=== PATIENT | female | born 1975 | race Two or more races ===

== ENCOUNTER 2021-02-07 23:22 | Inpatient (IN) | payer OTHER ==
[~2021-02-07] VITALS: Ht 165.1 cm; Wt 82.7 kg
[2021-02-07] MEDS ORDERED: ACETAMINOPHEN 325 MG TAB PO ONE (23:45)
[2021-02-08 00:42] LABS: Basophils # (auto) 0 10 ^3/uL (0-0.2); Basophils % (auto) 0.2 % (0.0-2.0); Eosinophils # (auto) 0.1 10 ^3/uL (0-0.8); Eosinophils % (auto) 0.6 % (0.0-7.0); Hematocrit 35.8 % (36.0-46.0); Hemoglobin 11.8 g/dL (12.2-16.2); Lymphocytes # (auto) 1.3 10 ^3/uL (0.4-5.4); Lymphocytes % (auto) 7.8 % (10.0-50.0); Mean Corpuscular Hemoglobin 28.6 pg (28.0-32.0); Mean Corpuscular Volume 86.6 fL (80.0-100.0); Monocytes # (auto) 0.6 10 ^3/uL (0-1.3); Monocytes % (auto) 3.8 % (0.0-12.0); Neutrophils # (auto) 14.5 10 ^3/uL (1.6-8.6); Neutrophils % (auto) 87.6 % (37.0-80.0); Red Blood Cells 4.13 10^6/uL (4.0-5.20); Red Cell Distribution Width 15.3 % (11.8-14.3); White Blood Cell 16.6 10^3/uL (4.4-10.8)
[2021-02-08 00:44] LABS: Albumin 2.9 g/dL (3.4-5.0); Calcium 8.3 mg/dL (8.5-10.1); Potassium 4.1 mmol/L (3.5-5.1)
[2021-02-08 00:58] LABS: Bilirubin, Total 0.4 mg/dL (0.2-1.0)
[2021-02-08] MEDS ORDERED: ONDANSETRON HCL 4 MG/2 ML VIAL IV ONE (06:45)
[2021-02-08] MEDS ORDERED: HYDROcodone-ACET 10/325MG TAB PO ONE (06:45)
[2021-02-08] MEDS ORDERED: cefTRIAXone 1GM/50ML D5W 50 ML IV ONE (06:55)
[2021-02-08] MEDS ORDERED: IOHEXOL 350 MG/ML 100ML IJ ONE (06:58)
[2021-02-08] MEDS ORDERED: SODIUM CHLORIDE 0.9% 1,000 ML IV ONE ×3 (07:00→14:15)
[2021-02-08] MEDS ORDERED: cefTRIAXone SOD 1,000 MG VL IM SCH (07:00)
[2021-02-08] MEDS ORDERED: cefTRIAXone SOD 1,000 MG VL IV SCH (07:15)
[2021-02-08] MEDS: CLINDAMYCIN 300MG IV 50 ML IV SCH ×2 (08:00→17:22)
[2021-02-08] MEDS ORDERED: VANCOMYCIN 1GM/250ML 250 ML IV ONE (14:15)
[2021-02-08] MEDS ORDERED: ERTAPENEM SOD INJ 1 GM in SODIUM CHL 0.9% 50 ML IV ONE (14:15)
[2021-02-08] MEDS ORDERED: SODIUM CHLORIDE 0.9% 2,450 ML IV ONE (14:15)
[2021-02-08 15:20] LABS: Basophils # (auto) 0.1 10 ^3/uL (0-0.2); Basophils % (auto) 0.6 % (0.0-2.0); Eosinophils # (auto) 0.2 10 ^3/uL (0-0.8); Eosinophils % (auto) 1.7 % (0.0-7.0); Hematocrit 30.8 % (36.0-46.0); Hemoglobin 10.1 g/dL (12.2-16.2); Lymphocytes # (auto) 1.5 10 ^3/uL (0.4-5.4); Lymphocytes % (auto) 14.2 % (10.0-50.0); Mean Corpuscular Hemoglobin 28.7 pg (28.0-32.0); Mean Corpuscular Hgb Conc. 32.9 g/dL (32.0-36.0); Mean Corpuscular Volume 87.3 fL (80.0-100.0); Monocytes # (auto) 0.7 10 ^3/uL (0-1.3); Monocytes % (auto) 6.5 % (0.0-12.0); Neutrophils # (auto) 8.3 10 ^3/uL (1.6-8.6); Nucleated Red Blood Cells % 0.1 %; Red Blood Cells 3.52 10^6/uL (4.0-5.20); Red Cell Distribution Width 15.1 % (11.8-14.3); White Blood Cell 10.8 10^3/uL (4.4-10.8)
[2021-02-08] MEDS ORDERED: HYDROcodone-ACET 5/325MG TAB PO ONE (15:45)
[2021-02-08 16:16] LABS: Albumin 2.4 g/dL (3.4-5.0); Calcium 7.7 mg/dL (8.5-10.1); Potassium 3.9 mmol/L (3.5-5.1)
[2021-02-08 16:20] LABS: BUN/Creatinine Ratio 21.2; Bilirubin, Total 0.6 mg/dL (0.2-1.0); Total Protein 6.1 g/dL (6.4-8.2)
[2021-02-08] MEDS ORDERED: NITROGLYCERIN 0.4 MG SL TAB SL PRN (17:45)
[2021-02-08] MEDS ORDERED: ACETAMINOPHEN 500 MG TAB PO PRN (17:45)
[2021-02-08] MEDS ORDERED: LORazepam 0.5 MG TAB PO PRN (17:45)
[2021-02-08] MEDS ORDERED: VANCOMYCIN PER PHARMACY 0 MG IV SCH (17:45)
[2021-02-08] MEDS ORDERED: ONDANSETRON HCL 4 MG/2 ML VIAL IV PRN (17:45)
[2021-02-08] MEDS ORDERED: TETANUS-DIPTH-ACEL PERTUSSIS 0.5ML SYR Tdap IM ONE (17:45)
[2021-02-08] MEDS ORDERED: MORPHINE SULFATE INJECTION 2 MG/ML SYRG IV PRN (17:45)
[2021-02-08] MEDS ORDERED: DOCUSATE CALCIUM 240 MG CAP PO PRN (17:45)
[2021-02-08] MEDS ORDERED: hydrALAZINE HCL 20 MG/ML VL IV PRN (17:45)
[2021-02-08] MEDS ORDERED: SODIUM CHLORIDE 0.9% 500 ML IV ONE (18:00)
[2021-02-08] MEDS ORDERED: cefTRIAXone 1GM/50ML D5W 50 ML IV SCH (22:00)
[2021-02-08] MEDS: CLINDAMYCIN 600MG IV 50 ML IV SCH (23:03)
[2021-02-09] VITALS: BP 88/53
[2021-02-09] MEDS: VANCOMYCIN 1GM/250ML 250 ML IV SCH ×3 (01:00→21:30)
[2021-02-09 05:00] VITALS: BP 96/47
[2021-02-09] MEDS: CLINDAMYCIN 600MG IV 50 ML IV SCH ×3 (05:13→22:33)
[2021-02-09 06:30] LABS: Basophils # (auto) 0 10 ^3/uL (0-0.2); Basophils % (auto) 0.6 % (0.0-2.0); Eosinophils # (auto) 0.2 10 ^3/uL (0-0.8); Eosinophils % (auto) 2.5 % (0.0-7.0); Hemoglobin 9.3 g/dL (12.2-16.2); Lymphocytes # (auto) 1.5 10 ^3/uL (0.4-5.4); Mean Corpuscular Hgb Conc. 34.4 g/dL (32.0-36.0); Mean Corpuscular Volume 87.3 fL (80.0-100.0); Monocytes # (auto) 0.4 10 ^3/uL (0-1.3); Neutrophils # (auto) 5.1 10 ^3/uL (1.6-8.6); Neutrophils % (auto) 70.9 % (37.0-80.0); Red Blood Cells 3.09 10^6/uL (4.0-5.20); Red Cell Distribution Width 15.1 % (11.8-14.3); White Blood Cell 7.1 10^3/uL (4.4-10.8)
[2021-02-09 06:41] LABS: INR 1.07 (0.9-1.15)
[2021-02-09 06:43] LABS: Albumin 2.1 g/dL (3.4-5.0); BUN/Creatinine Ratio 15.4; Calcium 7.7 mg/dL (8.5-10.1); Potassium 3.4 mmol/L (3.5-5.1)
[2021-02-09 06:47] LABS: Bilirubin, Total 0.3 mg/dL (0.2-1.0); Total Protein 5.7 g/dL (6.4-8.2)
[2021-02-09 09:00] VITALS: BP 89/60
[2021-02-09] MEDS: PANTOPRAZOLE 40 MG TAB PO SCH (09:29)
[2021-02-09] MEDS: cefTRIAXone 1GM/50ML D5W 50 ML IV SCH (09:29)
[2021-02-09] MEDS: ENOXAPARIN SOD 40 MG/0.4 ML SYRINGE SC SCH (09:29)
[2021-02-09] MEDS: MORPHINE SULFATE INJECTION 2 MG/ML SYRG IV PRN ×2 (12:10→22:49)
[2021-02-09 13:00] VITALS: BP 110/65
[2021-02-09] MEDS: SODIUM CHLORIDE 0.9% 1,000 ML IV SCH (13:24)
[2021-02-09 16:39] VITALS: BP 94/55
[2021-02-09] MEDS: DOCUSATE SOD 100 MG CAP PO SCH (21:30)
[2021-02-09 22:00] VITALS: BP 99/64
[2021-02-10] MEDS: SODIUM CHLORIDE 0.9% 1,000 ML IV SCH ×2 (02:05→06:16)
[2021-02-10 05:00] VITALS: BP 93/62
[2021-02-10] MEDS: MORPHINE SULFATE INJECTION 2 MG/ML SYRG IV PRN ×2 (05:05→16:12)
[2021-02-10] MEDS: CLINDAMYCIN 600MG IV 50 ML IV SCH ×3 (05:06→21:44)
[2021-02-10] MEDS: VANCOMYCIN 1GM/250ML 250 ML IV SCH ×2 (06:16→16:44)
[2021-02-10 06:57] VITALS: BP 88/57
[2021-02-10 09:00] VITALS: BP 98/60
[2021-02-10] MEDS: DOCUSATE SOD 100 MG CAP PO SCH ×3 (10:00→21:45)
[2021-02-10] MEDS: PANTOPRAZOLE 40 MG TAB PO SCH (10:07)
[2021-02-10] MEDS: cefTRIAXone 1GM/50ML D5W 50 ML IV SCH (10:07)
[2021-02-10] MEDS: ENOXAPARIN SOD 40 MG/0.4 ML SYRINGE SC SCH (10:08)
[2021-02-10 13:00] VITALS: BP 120/69
[2021-02-10 16:48] VITALS: BP 110/71
[2021-02-10 22:00] VITALS: BP 102/65
[2021-02-11] MEDS: VANCOMYCIN 1GM/250ML 250 ML IV SCH ×3 (03:11→23:00)
[2021-02-11] MEDS: MORPHINE SULFATE INJECTION 2 MG/ML SYRG IV PRN (03:12)
[2021-02-11] MEDS: SODIUM CHLORIDE 0.9% 1,000 ML IV SCH (04:47)
[2021-02-11 05:00] VITALS: BP 96/65
[2021-02-11] MEDS: CLINDAMYCIN 600MG IV 50 ML IV SCH ×3 (05:45→21:42)
[2021-02-11] MEDS: cefTRIAXone 1GM/50ML D5W 50 ML IV SCH (08:47)
[2021-02-11] MEDS: ENOXAPARIN SOD 40 MG/0.4 ML SYRINGE SC SCH (08:47)
[2021-02-11] MEDS: DOCUSATE SOD 100 MG CAP PO SCH (08:47)
[2021-02-11] MEDS: PANTOPRAZOLE 40 MG TAB PO SCH (08:47)
[2021-02-11 09:00] VITALS: BP 124/46
[2021-02-11 13:00] VITALS: BP 124/64
[2021-02-11 14:18] LABS: Basophils # (auto) 0.1 10 ^3/uL (0-0.2); Basophils % (auto) 2.3 % (0.0-2.0); Eosinophils # (auto) 0.2 10 ^3/uL (0-0.8); Eosinophils % (auto) 3.6 % (0.0-7.0); Hematocrit 30.3 % (36.0-46.0); Hemoglobin 10.3 g/dL (12.2-16.2); Lymphocytes # (auto) 1.1 10 ^3/uL (0.4-5.4); Mean Corpuscular Hemoglobin 29.6 pg (28.0-32.0); Mean Corpuscular Hgb Conc. 34.1 g/dL (32.0-36.0); Mean Corpuscular Volume 86.7 fL (80.0-100.0); Monocytes # (auto) 0.3 10 ^3/uL (0-1.3); Monocytes % (auto) 5.7 % (0.0-12.0); Neutrophils # (auto) 3.2 10 ^3/uL (1.6-8.6); Neutrophils % (auto) 66.4 % (37.0-80.0); Red Blood Cells 3.49 10^6/uL (4.0-5.20); White Blood Cell 4.8 10^3/uL (4.4-10.8)
[2021-02-11] MEDS: HYDROcodone-ACET 10/325MG TAB PO PRN (14:33)
[2021-02-11 17:00] VITALS: BP 108/58
[2021-02-11 22:00] VITALS: BP 132/67
[2021-02-12] MEDS: HYDROcodone-ACET 10/325MG TAB PO PRN ×3 (00:24→18:24)
[2021-02-12 05:00] VITALS: BP 107/56
[2021-02-12] MEDS: CLINDAMYCIN 600MG IV 50 ML IV SCH ×3 (05:35→21:25)
[2021-02-12 06:00] LABS: Basophils # (auto) 0 10 ^3/uL (0-0.2); Basophils % (auto) 1.1 % (0.0-2.0); Eosinophils # (auto) 0.2 10 ^3/uL (0-0.8); Eosinophils % (auto) 5.8 % (0.0-7.0); Hematocrit 27.6 % (36.0-46.0); Hemoglobin 9.4 g/dL (12.2-16.2); Lymphocytes # (auto) 1.7 10 ^3/uL (0.4-5.4); Lymphocytes % (auto) 47.5 % (10.0-50.0); Mean Corpuscular Hemoglobin 29.9 pg (28.0-32.0); Mean Corpuscular Hgb Conc. 34.2 g/dL (32.0-36.0); Mean Corpuscular Volume 87.6 fL (80.0-100.0); Monocytes # (auto) 0.3 10 ^3/uL (0-1.3); Neutrophils # (auto) 1.3 10 ^3/uL (1.6-8.6); Neutrophils % (auto) 37.6 % (37.0-80.0); Nucleated Red Blood Cells % 0.2 %; Red Blood Cells 3.16 10^6/uL (4.0-5.20); White Blood Cell 3.6 10^3/uL (4.4-10.8)
[2021-02-12 06:33] LABS: BUN/Creatinine Ratio 11.9; Calcium 7.6 mg/dL (8.5-10.1); Potassium 3.6 mmol/L (3.5-5.1)
[2021-02-12] MEDS: VANCOMYCIN 1GM/250ML 250 ML IV SCH ×2 (08:27→17:56)
[2021-02-12] MEDS: PANTOPRAZOLE 40 MG TAB PO SCH (08:27)
[2021-02-12] MEDS: ENOXAPARIN SOD 40 MG/0.4 ML SYRINGE SC SCH (08:28)
[2021-02-12 09:00] VITALS: BP 97/43
[2021-02-12 13:00] VITALS: BP 131/63
[2021-02-12 17:00] VITALS: BP 131/78
[2021-02-12 21:00] VITALS: BP 117/63
[2021-02-13] MEDS: HYDROcodone-ACET 10/325MG TAB PO PRN ×4 (00:19→22:15)
[2021-02-13] MEDS: VANCOMYCIN 1GM/250ML 250 ML IV SCH ×2 (04:30→14:27)
[2021-02-13 05:00] VITALS: BP 93/49
[2021-02-13] MEDS: CLINDAMYCIN 600MG IV 50 ML IV SCH ×3 (06:00→22:14)
[2021-02-13] MEDS: ENOXAPARIN SOD 40 MG/0.4 ML SYRINGE SC SCH (07:50)
[2021-02-13] MEDS: PANTOPRAZOLE 40 MG TAB PO SCH (07:50)
[2021-02-13 09:00] VITALS: BP 116/46
[2021-02-13 13:00] VITALS: BP 111/52
[2021-02-13 17:00] VITALS: BP 118/56
[2021-02-14] VITALS (7 sets, daily range): BP systolic 106–156; BP diastolic 60–71
[2021-02-14] MEDS: VANCOMYCIN 1GM/250ML 250 ML IV SCH ×2 (06:35→20:45)
[2021-02-14] MEDS: HYDROcodone-ACET 10/325MG TAB PO PRN ×3 (06:50→20:46)
[2021-02-14] MEDS: CLINDAMYCIN 600MG IV 50 ML IV SCH ×2 (09:00→15:01)
[2021-02-14] MEDS: PANTOPRAZOLE 40 MG TAB PO SCH (10:03)
[2021-02-14] MEDS: ENOXAPARIN SOD 40 MG/0.4 ML SYRINGE SC SCH (10:03)
[2021-02-15 05:12] VITALS: BP 136/72
[2021-02-15 09:00] VITALS: BP 99/54
[2021-02-15] MEDS: ENOXAPARIN SOD 40 MG/0.4 ML SYRINGE SC SCH (09:45)
[2021-02-15] MEDS: HYDROcodone-ACET 10/325MG TAB PO PRN ×3 (09:46→23:00)
[2021-02-15 13:00] VITALS: BP 115/57
[2021-02-15] MEDS: VANCOMYCIN 1GM/250ML 250 ML IV SCH ×2 (13:23→22:40)
[2021-02-15] MEDS: DOCUSATE SOD 100 MG CAP PO SCH ×2 (13:24→22:41)
[2021-02-15 17:00] VITALS: BP 143/65
[2021-02-15 20:00] VITALS: BP 114/63
[2021-02-15 22:00] VITALS: BP 113/67
[2021-02-16 05:00] VITALS: BP 94/54
[2021-02-16] MEDS: HYDROcodone-ACET 10/325MG TAB PO PRN ×3 (05:39→21:20)
[2021-02-16 08:00] VITALS: BP 101/66
[2021-02-16 09:00] VITALS: BP 101/56
[2021-02-16] MEDS: ENOXAPARIN SOD 40 MG/0.4 ML SYRINGE SC SCH (09:59)
[2021-02-16] MEDS: DOCUSATE SOD 100 MG CAP PO SCH ×2 (09:59→21:19)
[2021-02-16] MEDS: VANCOMYCIN 1GM/250ML 250 ML IV SCH ×2 (10:00→21:30)
[2021-02-16 13:00] VITALS: BP 102/62
[2021-02-16 20:00] VITALS: BP 119/67
[2021-02-16 21:34] VITALS: BP 119/67
[2021-02-17 05:30] VITALS: BP 108/61
[2021-02-17] MEDS: HYDROcodone-ACET 10/325MG TAB PO PRN ×3 (07:51→20:41)
[2021-02-17 08:37] VITALS: BP 118/55
[2021-02-17] MEDS: VANCOMYCIN 1GM/250ML 250 ML IV SCH ×2 (09:36→23:03)
[2021-02-17] MEDS: ENOXAPARIN SOD 40 MG/0.4 ML SYRINGE SC SCH (09:37)
[2021-02-17] MEDS: DOCUSATE SOD 100 MG CAP PO SCH ×2 (09:37→23:03)
[2021-02-17 14:07] VITALS: BP 108/59
[2021-02-17] MEDS: ONDANSETRON HCL 4 MG/2 ML VIAL IV PRN (14:25)
[2021-02-17 17:15] VITALS: BP 98/56
[2021-02-17 20:00] VITALS: BP 111/67
[2021-02-17 22:00] VITALS: BP 111/67
[2021-02-18] VITALS (7 sets, daily range): BP systolic 99–108; BP diastolic 54–72
[2021-02-18] MEDS: VANCOMYCIN 1GM/250ML 250 ML IV SCH ×2 (09:26→22:51)
[2021-02-18] MEDS: DOCUSATE SOD 100 MG CAP PO SCH ×3 (09:26→22:51)
[2021-02-18] MEDS: ENOXAPARIN SOD 40 MG/0.4 ML SYRINGE SC SCH (09:27)
[2021-02-18] MEDS: HYDROcodone-ACET 10/325MG TAB PO PRN ×3 (09:27→23:53)
[2021-02-18] MEDS: ONDANSETRON HCL 4 MG/2 ML VIAL IV PRN (13:38)
[2021-02-19 05:00] VITALS: BP 95/61
[2021-02-19] MEDS: HYDROcodone-ACET 10/325MG TAB PO PRN ×3 (06:36→19:45)
[2021-02-19 09:28] VITALS: BP 98/59
[2021-02-19] MEDS: ENOXAPARIN SOD 40 MG/0.4 ML SYRINGE SC SCH (10:18)
[2021-02-19] MEDS: DOCUSATE SOD 100 MG CAP PO SCH (10:18)
[2021-02-19] MEDS: VANCOMYCIN 1GM/250ML 250 ML IV SCH ×2 (10:18→22:30)
[2021-02-19 13:00] VITALS: BP 115/69
[2021-02-19 17:03] VITALS: BP 115/70
[2021-02-19 20:00] VITALS: BP 114/62
[2021-02-20 00:33] VITALS: BP 114/62
[2021-02-20] MEDS: HYDROcodone-ACET 10/325MG TAB PO PRN ×3 (04:11→20:53)
[2021-02-20 05:10] VITALS: BP 108/71
[2021-02-20 08:32] VITALS: BP 99/55
[2021-02-20] MEDS: ENOXAPARIN SOD 40 MG/0.4 ML SYRINGE SC SCH (09:37)
[2021-02-20] MEDS: DOCUSATE SOD 100 MG CAP PO SCH ×2 (09:37→22:28)
[2021-02-20] MEDS: Pro-Stat SF 30ml Vanilla PO SCH (09:37)
[2021-02-20] MEDS: VANCOMYCIN 1GM/250ML 250 ML IV SCH ×2 (09:37→22:28)
[2021-02-20 12:51] VITALS: BP 108/50
[2021-02-20 16:51] VITALS: BP 115/57
[2021-02-20] MEDS: ONDANSETRON HCL 4 MG/2 ML VIAL IV PRN (20:53)
[2021-02-20 22:00] VITALS: BP 104/60
[2021-02-21] MEDS: HYDROcodone-ACET 10/325MG TAB PO PRN ×2 (03:14→11:13)
[2021-02-21 05:00] VITALS: BP 97/62
[2021-02-21 08:59] VITALS: BP 108/64
[2021-02-21] MEDS ORDERED: DOXY-111 PO (09:50)
[2021-02-21] MEDS: Pro-Stat SF 30ml Vanilla PO SCH (10:00)
[2021-02-21] MEDS ORDERED: DOXYCYCLINE 100 MG TAB/CAP PO SCH (10:00)
[2021-02-21] MEDS ORDERED: ONDANSETRON ODT 4 MG TAB PO PRN (10:00)
[2021-02-21] MEDS: DOCUSATE SOD 100 MG CAP PO SCH (11:10)
[2021-02-21 13:00] VITALS: BP 104/59
[2021-02-21] MEDS ORDERED: ACET-1158 PO (14:05)
[2021-02-21 14:41] VITALS: BP 104/59
== END 2021-02-21 16:44 | disposition home or self-care (01) | DRG 862 ==
LOC: ER 23:22 → OVERFLOW 02-08 17:37 → EAST 02-08 23:24 → CENTRAL 02-10 12:06
PROVIDERS: ADMIT Family Medicine; ATTEND Internal Medicine Nephrology
PROC: 3E0234Z Introduction of Serum, Toxoid and Vaccine into Muscle, Percutaneous Approach (ICD-10-PCS; principal; 2021-02-08)
PROC: 0J9L30Z Drainage of Right Upper Leg Subcutaneous Tissue and Fascia with Drainage Device, Percutaneous Approach (ICD-10-PCS; 2021-02-08)
DX: T81.41XA Infection following a procedure, superficial incisional surgical site, initial encounter (principal); A41.9 Sepsis, unspecified organism; E44.0 Moderate protein-calorie malnutrition; L02.415 Cutaneous abscess of right lower limb; L03.116 Cellulitis of left lower limb; L03.115 Cellulitis of right lower limb; E87.6 Hypokalemia; K59.00 Constipation, unspecified; E66.01 Morbid (severe) obesity due to excess calories; D64.9 Anemia, unspecified; A49.02 Methicillin resistant Staphylococcus aureus infection, unspecified site; Z20.822 Contact with and (suspected) exposure to COVID-19; Y83.8 Other surgical procedures as the cause of abnormal reaction of the patient, or of later complication, without mention of misadventure at the time of the procedure; Z68.31 Body mass index [BMI] 31.0-31.9, adult; Z98.84 Bariatric surgery status; Z83.3 Family history of diabetes mellitus; Y92.89 Other specified places as the place of occurrence of the external cause; Z23 Encounter for immunization
CPT/HCPCS: 36415; 73701; 76881; 76942; 80048; 80053; 80202; 82565; 83605; 84443; 84484; 85025; 85610; 87040; 87070; 87077; 87186; 87426; 90471; 90715; 96361; 96365; 96366; 96367; 96368; 96375; C1729; G0378; J0696; J1335; J2405; J3490; Q0162

== ENCOUNTER 2021-11-26 20:16 | Emergency (ER) | payer OTHER ==
[~2021-11-26] VITALS: Ht 165.1 cm; Wt 87.0 kg
[~2021-11-26 20:16] MED LIST: ACET-1158 PO; DOXY-111 PO
[2021-11-26 21:00] VITALS: BP 140/76
[2021-11-26 22:00] LABS: Urine Bacteria FEW /hpf (None Seen); Urine Blood Negative /uL (Negative); Urine Mucus FEW (None Seen); Urine Specific Gravity 1.027 (1.001-1.035); Urine WBC 2 /hpf (0 - 5)
[2021-11-26] MEDS ORDERED: ONDANSETRON ODT 4 MG TAB PO ONE (23:15)
[2021-11-26] MEDS ORDERED: HYDROcodone-ACET 5/325MG TAB PO ONE (23:15)
[2021-11-26] MEDS ORDERED: ONDA-144 PO (23:48)
[2021-11-26] MEDS ORDERED: HYDR-4902 PO (23:48)
== END 2021-11-26 23:57 | disposition home or self-care (01) ==
LOC: ER 20:16
DX: S92.511A Displaced fracture of proximal phalanx of right lesser toe(s), initial encounter for closed fracture (principal); Z79.899 Other long term (current) drug therapy; X58.XXXA Exposure to other specified factors, initial encounter; Y93.89 Activity, other specified; Y92.89 Other specified places as the place of occurrence of the external cause; Y99.8 Other external cause status
CPT/HCPCS: 28515; 73630; 81001; 99284; Q0162

== ENCOUNTER 2025-01-11 03:06 | Emergency (ER) | payer OTHER ==
[~2025-01-11] VITALS: Ht 165.1 cm; Wt 93.3 kg
[~2025-01-11 03:06] MED LIST changes: -ACET-1158 PO; +ACET500T58 PO; +HYDR-4902 PO; +ONDA-144 PO
--- NOTE | 2025-01-11 03:32 | ED.PDOC ---
History of Present Illness HPI Comments 49-year-old female who came to ER for dizziness. Patient states for the past day he has been having experiencing fullness over her right ear. About an hour ago, patient started having episodes of dizziness, felt like the room spinning, associated with nausea. Patient states he has been having problems keeping her balance because of the dizziness. Chief Complaint: Dizziness Time Seen by MD: 03:32 Primary Care Provider: Unk Reviewed Notes: Nurses Notes Allergies: Coded Allergies: NO KNOWN ALLERGIES (Unverified , 02/08/21) Home Meds Active Scripts Meclizine HCl (Meclizine) 25 Mg Chw, 25 MG PO Q6HP PRN, #30 CHW Prov:EMELYN ADY MD 01/11/25 Ondansetron (Zofran) 4 Mg Tab, 1 TAB PO Q8HR, #15 TAB 0 Refills Prov:MANISH GONSALVES 11/26/21 Hydrocodone-Acetaminophen (Hydrocodone Bitartrate/AC 5-325 mg) 1 Tab Tab, 1 TAB PO Q6HPRN PRN, #10 TAB 0 Refills Prov:MANISH GONSALVES 11/26/21 Acetaminophen (Acetaminophen) 500 Mg Tab, 500 MG PO Q8HP PRN for 7 Days, #21 TAB Prov:OLAF MESSINA MD 02/21/21 Doxycycline Monohydrate (Doxycycline Monohydrate) 100 Mg Tab, 100 MG PO BID for 10 Days, #20 TAB Prov:OLAF MESSINA MD 02/21/21 Information Source: Patient Mode of Arrival: Ambulatory Severity: Moderate Timing: Hours Duration: Since onset Past Medical History PAST MEDICAL HISTORY: Denies Surgical History: Denies all surgeries MACHINE SHOP HELPER History: No Pertinent MACHINE SHOP HELPER History Family History Family History: Reviewed,noncontributory to illness Social History Smoker: Non-Smoker Alcohol: Denies ETOH Use Drugs: Denies Drug Use Lives In: Home Constitutional: denies: chills, diaphoresis, fatigue, fever, malaise, sweats, weakness, others EENTM: denies: blurred vision, double vision, ear bleeding, ear discharge, ear drainage, ear pain, ear ringing, eye pain, eye redness, hearing loss, mouth pain, mouth swelling, nasal discharge, nose bleeding, nose congestion, nose pain, photophobia, tearing, throat pain, throat swelling, voice changes, others Respiratory: denies: cough, hemoptysis, orthopnea, SOB at rest, shortness of breath, SOB with excertion, stridor, wheezing, others Cardiovascular: denies: chest pain, dizzy spells, diaphoresis, Dyspnea on exertion, edema, irregular heart beat, left arm pain, lightheadedness, palpit ations, PND, syncope, others Gastrointestinal: reports: nausea; denies: abdomen distended, abdominal pain, blood streaked bowels, constipated, diarrhea, dysphagia, difficulty swallowing, hematemesis, melena, poor appetite, poor fluid intake, rectal bleeding, rectal pain, vomiting, others Genitourinary: denies: abnormal vagina bleeding, burning, dyspareunia, dysuria, flank pain, frequency, hematuria, incontinence, pain, , vagina dischar ge, urgency, others Neurological: reports: dizziness; denies: fainting, headache, left sided numbness, left sided weakness, numbness, paresthesia, pre-existing deficit, right sided numbness, right sided weakness, seizure, speech problems, tingling, tremors, weakness, others Musculoskeletal: denies: back pain, gout, joint pain, joint swelling, muscle pain, muscle stiffness, neck pain, others Integumetry: denies: bruises, change in color, change in hair/nails, dryness, laceration, lesions, lumps, rash, wounds, others Allergic/Immunocompromised: denies: Difficulty Healing, Frequent Infections, Hives, Itching, others Hematologic/Lymphatic: denies: anemia, blood clots, easy bleeding, easy bruising, swollen glands, others Endocrine: denies: excessive hunger, excessive sweating, excessive thirst, excessive urination, flushing, intolerance to cold, intolerance to heat, unexplained weight gain, unexplained weight loss, others Psychiatric: denies: anxiety, bipolar disorder, depression, hopeless, panic disorder, schizophrenia, sleepless, suicidal, others Physical Exam General Appearance: No Apparent Distress, Normal HEENT: Normal ENT Inspection, Pharynx Normal, TMs Normal Neck: Full Range of Motion, Non-Tender, Normal, Normal Inspection Respiratory: Chest Non-Tender, Lungs Clear, No Accessory Muscle Use, No Respiratory Distress, Normal Breath Sounds Cardiovascular: No Edema, No JVD, No Murmur, No Gallop, Normal Peripheral Pulses, Regular Rate/Rhythm Breast Exam: Deferred Gastrointestinal: No Organomegaly, Non Tender, No Pulsatile Mass, Normal Bowel Sounds, Soft Genitalia: Deferred Pelvic: Deferred Rectal: Deferred Extremities: No calf tenderness, Normal capillary refill, Normal inspection, Normal range of motion, Non-tender, No pedal edema Musculoskeletal : Apperance: Normal Neurologic: Alert, 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 Was a procedure done?: No Differential Dx Considerations may include: Anemia, electrolyte imbalance, vertigo X-Ray, Labs, Meds, VS Vital Signs Date Time Temp Pulse Resp B/P (MAP) Pulse Ox O2 Delivery O2 Flow Rate FiO2 01/11/25 06:24 Room Air* 0 21 01/11/25 06:23 97.8 71 16 155/90 (111) 100 97.8 01/11/25 03:09 97.5 82 18 178/84 99 97.5 Lab Test 01/11/25 04:31 01/11/25 03:39 Range/Units Troponin I High Sensitivity < 3 L < 3 L </=34 ng/L White Blood Count 7.3 4.4-10.8 10^3/uL Red Blood Count 4.36 4.0-5.20 10^6/uL Hemoglobin 12.6 12.2-16.2 g/dL Hematocrit 36.9 36.0-46.0 % Mean Corpuscular Volume 84.5 80.0-100.0 fL Mean Corpuscular Hemoglobin 29.0 28.0-32.0 pg Mean Corpuscular Hemoglobin Concent 34.3 32.0-36.0 g/dL Red Cell Distribution Width 13.9 11.8-14.3 % Platelet Count 284 140-450 10^3/uL Mean Platelet Volume 8.2 6.9-10.8 fL Neutrophils (%) (Auto) 67.2 37.0-80.0 % Lymphocytes (%) (Auto) 24.6 10.0-50.0 % Monocytes (%) (Auto) 6.3 0.0-12.0 % Eosinophils (%) (Auto) 1.2 0.0-7.0 % Basophils (%) (Auto) 0.7 0.0-2.0 % Neutrophils # (Auto) 4.9 1.6-8.6 10 ^3/uL Lymphocytes # (Auto) 1.8 0.4-5.4 10 ^3/uL Monocytes # (Auto) 0.5 0-1.3 10 ^3/uL Eosinophils # (Auto) 0.1 0-0.8 10 ^3/uL Basophils # (Auto) 0.1 0-0.2 10 ^3/uL Nucleated Red Blood Cells 0.0 % Sodium Level 140 136-145 mmol/L Potassium Level 3.8 3.5-5.1 mmol/L Chloride Level 103 98-107 mmol/L Carbon Dioxide Level 27 20-31 mmol/L Anion Gap 10 5-15 Blood Urea Nitrogen 18 9-23 mg/dL Creatinine 0.70 0.550-1.02 mg/dL Glomerular Filtration Rate Calc 107 >90 mL/min BUN/Creatinine Ratio 25.7 H 10.0-20.0 Serum Glucose 109 H 74-106 mg/dL Calcium Level 8.8 8.7-10.4 mg/dL Magnesium Level 2.1 1.6-2.6 mg/dL Total Bilirubin 0.3 0.2-1.0 mg/dL Aspartate Amino Transferase (AST) 16 13-40 U/L Alanine Aminotransferase (ALT) 13 7-40 U/L Alkaline Phosphatase 80 46-116 U/L Total Protein 7.1 5.7-8.2 g/dL Albumin 4.3 3.2-4.8 g/dL Time of 1ST Reevaluation: 03:27 Reevaluation 1ST: Unchanged Patient Education/Counseling: Diagnosis, Treatment Family Education/Counseling: No Family Present SEPSIS Sepsis Screen Date sepsis recognized/suspect: Jan 11, 2025 Time Sepsis recognized/suspect: 030 Recent Procedure: No On Antibiotic Therapy: No Respiratory Rate >20: No Heart Rate >90: No Temp<36 C (96.8 F) or >38.3 C: No SBP <90 or MAP <65 mmHG: No New Acute Mental Status Change: No Is the patient on CPAP, BIPAP,: No Physician Orders Electrocardigram (01/11/25 03:21) Head Without Contrast (01/11/25 03:25) Vital Signs Date Time Temp Pulse Resp B/P (MAP) Pulse Ox O2 Delivery O2 Flow Rate FiO2 01/11/25 06:24 Room Air* 0 21 01/11/25 06:23 97.8 71 16 155/90 (111) 100 97.8 01/11/25 03:09 97.5 82 18 178/84 99 97.5 Laboratory Tests Test 01/11/25 03:39 White Blood Count 7.3 10^3/uL (4.4-10.8) Departure 1 Departure Time of Disposition: 05:00 Impression: Primary Impression: Vertigo Disposition: 01 HOME / SELF CARE / HOMELESS Condition: Stable e-Prescriptions Meclizine HCl (Meclizine) 25 Mg Chw 25 MG PO Q6HP PRN, #30 CHW Prov: EMELYN DAY MD 01/11/25 Discharged With: Self Critical Care Note Critical Care Time?: No Stability Stability form required: No Heart Score Heart Score: Heart Score Response (Comments) Value History N/A 0 EKG N/A 0 Age N/A 0 Risk Factors N/A 0 Troponin N/A 0 Total 0 I personally scribed for EMELYN DAY MD ([email or web address]) on 01/11/25 at 03:32. Electron[facility] submitted by Marvin [facility] ([facility] EMELYN DAY MD Jan 11, 2025 03:32
[2025-01-11 04:01] LABS: Hematocrit 36.9 % (36.0-46.0); Hemoglobin 12.6 g/dL (12.2-16.2); Mean Corpuscular Hemoglobin 29.0 pg (28.0-32.0); Mean Corpuscular Volume 84.5 fL (80.0-100.0); Nucleated Red Blood Cells % 0.0 %
[2025-01-11 04:16] LABS: Alanine Aminotransferase 13 U/L (7-40); Alkaline Phosphatase 80 U/L (46-116); Anion Gap 10 (5-15); Calcium 8.8 mg/dL (8.7-10.4); Carbon Dioxide 27 mmol/L (20-31); Chloride 103 mmol/L (98-107); Magnesium 2.1 mg/dL (1.6-2.6); Potassium 3.8 mmol/L (3.5-5.1); Sodium 140 mmol/L (136-145); Total Protein 7.1 g/dL (5.7-8.2)
[2025-01-11 04:17] LABS: Albumin 4.3 g/dL (3.2-4.8); BUN/Creatinine Ratio 25.7 (10.0-20.0); Bilirubin, Total 0.3 mg/dL (0.2-1.0); Blood Urea Nitrogen 18 mg/dL (9-23)
[2025-01-11 04:19] LABS: Glucose 109 mg/dL (74-106)
[2025-01-11] MEDS ORDERED: MECL25CH38 PO (05:15)
--- NOTE | 2025-01-11 05:24 | DVH ---
EXAM: CT HEAD WITHOUT CONTRAST INDICATION: vertigo TECHNIQUE: CT of the head without intravenous contrast. Coronal and sagittal reformatted images are s ubmitted. Radiation Dose : 1. Head: CT Dose: CTDI volume is 49.25 mGy. Dose-length product is 784.95 mGy*cm The dose indicators for CT are the volume Computed Tomography (CT) Dose Index (CTDIvol) and the Dose Length Product (DLP), and are measured in units of mGy and mGy-cm, respectively. These indicators are not patient dose, but values generated from the CT scanner acquisition factors. The report includes radiation exposure data for exposures received during this examination. All CT scans at this medical facility are performed using dose modulation techniques as appropriate to a performed exam including the following: Automated exposure control was utilized; adjustment of the MA and/or KV according to patient size; and use of iterative reconstruction technique. COMPARISON: None FINDINGS: There is no evidence of acute intracranial hemorrhage, extra-axial collection, mass effect, midline s hift, herniation or hydrocephalus. The ventricles, sulci and cisterns are age appropriate. The edwards-white differentiation is intact. The visualized paranasal sinuses and mastoid air cells are clear. No depressed calvarial fracture. The surrounding soft tissues are unremarkable. IMPRESSION: No evidence of acute intracranial abnormality.
[2025-01-11 06:23] VITALS: BP 155/90; PULSE 71; RESP 16; TEMP 97.8; O2SAT 100
== END 2025-01-11 06:27 | disposition home or self-care (01) ==
LOC: ER 03:06
DX: R42 Dizziness and giddiness (principal); Z79.899 Other long term (current) drug therapy
CPT/HCPCS: 36415; 70450; 80053; 83735; 84484; 85025